=== PATIENT | male | born 1965 | race Two or more races ===

== ENCOUNTER 2022-06-04 18:43 | Inpatient (IN) | payer OTHER ==
[~2022-06-04] VITALS: Ht 180.3 cm; Wt 90.0 kg
[2022-06-04] VITALS (7 sets, daily range): BP systolic 120–141; BP diastolic 78–87
[2022-06-04] MEDS ORDERED: ACETAMINOPHEN 325 MG TAB PO PRN (21:45)
[2022-06-04] MEDS ORDERED: NITROGLYCERIN 0.4 MG SL TAB SL PRN (21:45)
[2022-06-04] MEDS ORDERED: DOCUSATE SOD 100 MG CAP PO PRN (21:45)
[2022-06-04] MEDS ORDERED: MORPHINE SULFATE INJ 2 MG/ml SYRG IV PRN ×2 (21:45)
[2022-06-04] MEDS ORDERED: LORazepam 0.5 MG TAB PO PRN (21:45)
[2022-06-04] MEDS ORDERED: ONDANSETRON HCL 4 MG/2 ML VIAL IV PRN (21:45)
[2022-06-04] MEDS ORDERED: HYDROcodone-ACET 5/325MG TAB PO PRN (21:45)
[2022-06-04] MEDS ORDERED: MAALOX PLUS or MAALOX 30 ML PO PRN (21:45)
[2022-06-04] MEDS ORDERED: InsuLIN R (HUMAN) 100 UNITS in SODIUM CHL 0.9% 99 ML IV SCH (21:45)
[2022-06-04] MEDS ORDERED: D5W/SOD CHL 0.45% 1,000 ML IV SCH (21:45)
[2022-06-04] MEDS ORDERED: DEXTROSE (50%) 50ML SYRG IV PRN (21:45)
[2022-06-04 22:16] LABS: Basophils # (auto) 0 10 ^3/uL (0-0.2); Basophils % (auto) 0.5 % (0.0-2.0); Eosinophils # (auto) 0 10 ^3/uL (0-0.8); Eosinophils % (auto) 0.4 % (0.0-7.0); Hematocrit 42.2 % (41.0-53.0); Hemoglobin 14.3 g/dL (13.5-17.5); Lymphocytes # (auto) 0.9 10 ^3/uL (0.4-5.4); Lymphocytes % (auto) 12.2 % (10.0-50.0); Mean Corpuscular Hemoglobin 31.1 pg (28.0-32.0); Mean Corpuscular Hgb Conc. 33.9 g/dL (32.0-36.0); Mean Corpuscular Volume 91.7 fL (80.0-100.0); Monocytes # (auto) 0.8 10 ^3/uL (0-1.3); Monocytes % (auto) 11.1 % (0.0-12.0); Neutrophils # (auto) 5.5 10 ^3/uL (1.6-8.6); Neutrophils % (auto) 75.8 % (37.0-80.0); Red Blood Cells 4.61 10^6/uL (4.5-5.90); Red Cell Distribution Width 14.1 % (11.8-14.3); White Blood Cell 7.3 10^3/uL (4.4-10.8)
[2022-06-04] MEDS: ACCU-CHEK COMFORT CURVE STRIP VI SCH (22:30)
[2022-06-04 22:31] LABS: INR 0.88 (0.9-1.15); Partial Thromboplastin Time 20.4 sec (24.6-33.4)
[2022-06-04 22:38] LABS: Albumin 3.3 g/dL (3.4-5.0); Calcium 8.9 mg/dL (8.5-10.1); Magnesium 2.5 mg/dL (1.6-2.6); Potassium 4.5 mmol/L (3.5-5.1)
[2022-06-04 22:48] LABS: Bilirubin, Total 0.4 mg/dL (0.2-1.0); Phosphorus 3.1 mg/dL (2.5-4.90); Total Protein 7.1 g/dL (6.4-8.2)
[2022-06-04 22:58] LABS: Urine Bacteria NONE SEEN /hpf (None Seen); Urine Blood 3+ /uL (Negative); Urine Specific Gravity 1.028 (1.001-1.035); Urine WBC 4 /hpf (0 - 3)
[2022-06-04] MEDS: D5W/SOD CHLO 0.9% 1,000 ML IV SCH (23:00)
[2022-06-05] VITALS (22 sets, daily range): BP systolic 93–126; BP diastolic 62–84
[2022-06-05] MEDS ORDERED: LEVO200I5 IV (01:11)
[2022-06-05] MEDS ORDERED: ROSU1TAB12 PO (01:11)
[2022-06-05] MEDS ORDERED: APIX2.5T PO (01:11)
[2022-06-05] MEDS: ACCU-CHEK COMFORT CURVE STRIP VI SCH ×11 (01:30→22:16)
[2022-06-05 04:21] LABS: Calcium 8.4 mg/dL (8.5-10.1); Potassium 3.7 mmol/L (3.5-5.1)
[2022-06-05 04:24] LABS: BUN/Creatinine Ratio 14.8
[2022-06-05] MEDS: LEVOTHYROXINE SODIUM 25 MCG TAB PO SCH (06:50)
[2022-06-05] MEDS: D5W/SOD CHLO 0.9% 1,000 ML IV SCH (07:00)
[2022-06-05] MEDS: APIXABAN 2.5 MG TAB PO SCH ×2 (09:01→22:16)
[2022-06-05] MEDS: PANTOPRAZOLE 40 MG TAB PO SCH (09:01)
[2022-06-05] MEDS: INSULIN LANTUS (GLARGINE) 1 /0.01ml (100units/ml) SC SCH ×2 (09:28→09:33)
[2022-06-05] MEDS ORDERED: ERGOCALCIFEROL 50,000 UNIT(1.25MG) CAP PO SCH (10:00)
[2022-06-05] MEDS ORDERED: INSULIN LANTUS (GLARGINE) 1 /0.01ml (100units/ml) SC SCH ×2 (10:00→18:00)
[2022-06-05] MEDS: InsuLIN REG 1unit/0.01ml Soln (100units/ml) SC SCH ×2 (11:56→18:43)
[2022-06-05] MEDS: SODIUM CHLORIDE 0.9% 1,000 ML IV SCH ×2 (13:00→22:16)
[2022-06-05] MEDS ORDERED: InsuLIN REG 1unit/0.01ml Soln (100units/ml) SC SCH (22:00)
[2022-06-06 05:24] VITALS: BP 129/85
[2022-06-06] MEDS: SODIUM CHLORIDE 0.9% 1,000 ML IV SCH ×2 (06:13→12:19)
[2022-06-06] MEDS: LEVOTHYROXINE SODIUM 25 MCG TAB PO SCH (06:14)
[2022-06-06] MEDS: InsuLIN REG 1unit/0.01ml Soln (100units/ml) SC SCH ×2 (06:14→12:26)
[2022-06-06] MEDS: ACCU-CHEK COMFORT CURVE STRIP VI SCH ×2 (06:16→12:28)
[2022-06-06 07:08] LABS: BUN/Creatinine Ratio 25.4; Calcium 8.4 mg/dL (8.5-10.1); Magnesium 2.3 mg/dL (1.6-2.6); Phosphorus 2.8 mg/dL (2.5-4.90); Potassium 3.6 mmol/L (3.5-5.1)
[2022-06-06 08:00] VITALS: BP 138/86
[2022-06-06] MEDS ORDERED: INSLANTI SC (10:06)
[2022-06-06] MEDS ORDERED: ERGO1CAP23 PO (10:06)
[2022-06-06] MEDS: PANTOPRAZOLE 40 MG TAB PO SCH (10:29)
[2022-06-06] MEDS: APIXABAN 2.5 MG TAB PO SCH (10:29)
[2022-06-06 11:18] VITALS: BP 138/86
== END 2022-06-06 12:00 | disposition home or self-care (01) | DRG 637 ==
LOC: EEVIPCON → ICU WEST 20:55 → CENTRAL 06-05 16:02
PROVIDERS: ADMIT Internal Medicine; ATTEND Internal Medicine
DX: E11.10 Type 2 diabetes mellitus with ketoacidosis without coma (principal); N17.0 Acute kidney failure with tubular necrosis; E03.9 Hypothyroidism, unspecified; E78.5 Hyperlipidemia, unspecified; E55.9 Vitamin D deficiency, unspecified; Z79.01 Long term (current) use of anticoagulants; Z86.718 Personal history of other venous thrombosis and embolism
CPT/HCPCS: 36415; 36600; 71045; 80048; 80053; 80061; 81001; 82010; 82043; 82306; 82607; 82805; 82962; 83036; 83605; 83735; 83930; 84100; 84439; 84443; 85025; 85610; 85730; 87081; G0378; J1815; J2405